=== PATIENT | female | born 1975 | race Caucasian/White ===

== ENCOUNTER → 2024-10-26 10:00 | Outpatient (CLI) | payer OTHER, SELFPAY ==
[2024-10-26 10:18] LABS: Add Manual Diff / Slide Review NO; Hematocrit 42.2 % (36-46); Hemoglobin 14.5 g/dL (12.0-16.0); Lymphocytes Absolute Auto 1500 /uL (1100-4500); Mean Corpuscular HGB Conc 34.4 % (30-36); Mean Corpuscular Hemoglobin 31.4 PG (26-34); Mean Corpuscular Volume 91.4 fL (80-100); Platelet Count 274 X10^3/uL (150-400)
[2024-10-26 10:30] LABS: Hemoglobin A1C% w Est Avg Glu 5.3 % (4.0-6.0)
[2024-10-26 10:46] LABS: Alanine Aminotransferase 19 IU/L (<35); Albumin 4.5 g/dL (3.5-5.0); Albumin Globulin Ratio 1.6 (1.0-2.8); Alkaline Phosphatase 44 U/L (38-126); Blood Urea Nitrogen 11 mg/dL (7-17); Calcium 9.9 mg/dL (8.4-10.2); Carbon Dioxide 27 mmol/L (22-32); Chloride 101 mmol/L (98-107); Estimated Glomerular Filt Rate > 60 mL/min (>60); Globulin 2.8 g/dL (1.7-4.1); Glucose 89 mg/dL (70-99); HEMOLYSIS < 15 (0-50); Potassium 4.1 mmol/L (3.4-5.1); Sodium 136 mmol/L (137-145); Total Protein 7.3 g/dL (6.3-8.2)
[2024-10-26 11:15] LABS: TSH w/ Reflex to FT4 22.10 uIU/mL (0.47-4.68)
[2024-10-26 11:47] LABS: Free T4, Direct Thyroxine 0.76 ng/dL (0.78-2.19)
[2024-10-26 12:21] LABS: Vitamin B12 Reflex MMA if <400 528 pg/mL (239-931)
[2024-10-31 14:40] LABS: ANA Screen, IFA Negative (.)
== END ==
PROVIDERS: PCP Family Medicine; Referring Provider Family Medicine; Visit Provider Family Medicine
DX: M79.609 Pain in unspecified limb (principal); R20.0 Anesthesia of skin; R20.2 Paresthesia of skin; M25.551 Pain in right hip; Z82.69 Family history of other diseases of the musculoskeletal system and connective tissue; M54.9 Dorsalgia, unspecified; G89.29 Other chronic pain
CPT/HCPCS: 36415; 80053; 82607; 83036; 84439; 84443; 85025; 85651; 86038; 86140

== ENCOUNTER → 2024-11-13 07:26 | Outpatient (CLI) | payer OTHER, SELFPAY ==
--- NOTE | 2024-11-13 07:27 | DI.MRI.S_ITS ---
PROCEDURE: MR LUMBAR SPINE WO CON INDICATIONS: Chronic back pain TECHNIQUE: Noncontrast sagittal T1 spin echo and T2 fast echo, sagittal STIR, and T2 fast spin echo through the lumbar spine. In cases with scoliosis, additional coronal T2 fast spin echo may be performed. COMPARISON: None. FINDINGS: Image quality: Diagnostic Alignment and Curvature: There is normal bony alignment. Bone Marrow: Marrow is of normal overall signal. No acute vertebral body compression fractures. Vertebral body hemangiomas noted in the sacrum. Spinal Cord: Conus medullaris terminates at the L1 level. Visualized cord demonstrates normal signal and size. Paraspinous Soft Tissues: No paravertebral masses. T12-L1: No significant neuroforaminal or spinal canal stenosis. L1-L2: Mild bilateral facet arthropathy. Mild ligamentum flavum thickening. Mild epidural lipomatosis. No significant neuroforaminal or spinal canal stenosis. L2-L3: Minimal bilateral facet arthropathy. Mild ligamentum flavum thickening. Mild epidural lipomatosis. No significant disc bulge. No significant neuroforaminal or spinal canal stenosis. L3-L4: Mild bilateral facet arthropathy. Ligamentum flavum thickening. Mild epidural lipomatosis. No significant disc space loss. Moderate symmetric disc bulge. Combination of findings result in mild spinal canal stenosis and mild bilateral neuroforaminal stenosis. L4-L5: Mild bilateral facet arthropathy and ligamentum flavum thickening. Moderate symmetric disc bulge. Combination of findings result in mild-moderate left and moderate right bilateral neuroforaminal stenosis. There is moderate spinal canal stenosis. There is effacement of the bilateral of articular zones more pronounced on the right. L5-S1: Degenerative endplate changes. Mild disc space loss. Minimal loss of T2 disc signal intensity. Mild bilateral facet arthropathy. There is a eccentric to the right disc bulge with right broad-based posterior disc herniation measuring approximately 2.0 cm in transverse dimension and 0.5 cm in AP dimension. This causes severe effacement of the right subarticular and right foraminal zones. The exiting nerve root appears to abut the disc. There is severe right and moderate left bilateral neuroforaminal stenosis. Mild spinal canal stenosis. There is also a left S1 Tarlov cyst measuring 2.8 x 2.3 cm in axial cross-sectional dimension (32/series 5) IMPRESSION: Lumbar spine without acute abnormalities. Multilevel, multifactorial lumbar spondylosis as described above by vertebral body level. Findings are most pronounced at L5-S1 where a prominent eccentric to the right disc bulge with concurrent right posterior disc herniation results in severe right and moderate left bilateral neuroforaminal stenosis as well as mild spinal canal stenosis. Other chronic/non-acute findings as above. Dictated by: Suleiman Green M.D. on 11/13/2024 at 21:36 Approved by: Suleiman Green M.D. on 11/13/2024 at 21:48
== END ==
LOC: MRI 07:26
PROVIDERS: PCP Family Medicine; Referring Provider Family Medicine; Visit Provider Family Medicine
DX: M47.816 Spondylosis without myelopathy or radiculopathy, lumbar region (principal); M47.817 Spondylosis without myelopathy or radiculopathy, lumbosacral region; M51.369 Other intervertebral disc degeneration, lumbar region without mention of lumbar back pain or lower extremity pain; M51.379 Other intervertebral disc degeneration, lumbosacral region without mention of lumbar back pain or lower extremity pain; M48.07 Spinal stenosis, lumbosacral region; M48.061 Spinal stenosis, lumbar region without neurogenic claudication; M54.9 Dorsalgia, unspecified; G89.29 Other chronic pain
CPT/HCPCS: 72148